=== PATIENT | male | born 1980 | race Caucasian/White ===

== ENCOUNTER 2017-01-29 20:50 | Emergency (ER) | payer BC ==
[2017-01-29 16:56] LABS: BASOPHILS 0.3 %; BASOPHILS ABSOLUTE 0.02 10/3/uL (0.0-0.16); EOSINOPHILS ABSOLUTE 0.46 10/3/uL (0.0-0.53); ER CBC TAT 0 Hrs 05 Mins; IMMATURE GRANULOCYTES 0.1 %; IMMATURE GRANULOCYTES ABSOLUTE 0.01 10/3/uL (0.0-0.11); LYMPHOCYTES 29.9 %; LYMPHOCYTES ABSOLUTE 2.28 10/3/uL (0.67-4.30); MEAN CORPUSCULAR VOLUME 89.7 fL (80-100); MONOCYTES 3.5 %; MONOCYTES ABSOLUTE 0.27 10/3/uL (0.21-1.20); NEUTROPHILS 60.2 %; NEUTROPHILS ABSOLUTE 4.58 10/3/uL (2.02-8.40); RBC DISTRIBUTION WIDTH 13.1 % (12.0-16.0); RED CELL COUNT 4.74 10/6/uL (4.7-6.1); WHITE BLOOD CELLS 7.6 10/3/uL (4.5-10.5)
[2017-01-29 16:57] LABS: HEMATOCRIT 42.5 % (40.0-51.0); HEMOGLOBIN 14.7 g/dL (13.6-17.8); MANUAL DIFF NO %; MEAN CORPUS HGB CONC 34.6 g/dL (32.0-36.0); PLATELET COUNT 233 10/3/uL (150-400)
[2017-01-29 17:04] LABS: INTERNATIONAL NORMAL RATI 1.2 UNITS (-); PARTIAL THROMBO TIME 30.9 SEC (22.5-37.2); PROTIME (NOT ORD) 14.9 SEC (12.0-14.5)
[2017-01-29 17:11] LABS: CALCIUM, SERUM 8.8 MG/DL (8.5-10.4); CHEST PAIN PROFILE TAT 0 Hrs 20 Mins; CHLORIDE, SERUM 110 MMOL/L (96-112); CO2 (CARBON DIOXIDE) 27 MMOL/L (24-34); CREATININE 1.42 MG/DL (0.70-1.30); GFR AFRICAN AMERICAN 72 ML/MIN (>=60); GFR NON AFRICAN AMERICAN 62 ML/MIN (>=60); GLUCOSE, SERUM 106 MG/DL (60-99); POTASSIUM, SERUM 3.8 MMOL/L (3.5-5.3); SODIUM, SERUM 142 MMOL/L (135-148); TROPONIN I <0.02 NG/ML (<0.05)
[2017-01-29 17:12] LABS: BUN (BLOOD UREA NITROGEN) 17 MG/DL (6-23)
[~2017-01-29 20:50] MED LIST: ASAB PO; AUG875 PO; BISR PR; DSS PO; ELIQUIS 5 MG TAB5 MG PO; LOP25 PO; MIRALAXPKT PO; NORCO1 TA1 PO; OXYCON10 PO; PERCOCET1 TA4 PO; VITC500 PO; ZINC220C PO; ZOFRAN4 PO
== END 2017-01-29 22:37 | disposition home or self-care (01) ==
LOC: ER 20:50
PROVIDERS: Emergency Medicine
DX: M79.604 Pain in right leg (principal); R07.81 Pleurodynia; Z87.442 Personal history of urinary calculi; Z88.5 Allergy status to narcotic agent; Z79.899 Other long term (current) drug therapy
CPT/HCPCS: 71010; 71275; 80048; 83735; 84484; 85025; 85610; 85730; 93971; 99284; Q9967